=== PATIENT | female | born 1960 | race Two or more races ===

== ENCOUNTER 2025-04-06 13:37 | Emergency (ER) | payer MEDICAID ==
[~2025-04-06] VITALS: Ht 162.6 cm; Wt 75.0 kg
[~2025-04-06 13:37] MED LIST: ASPI81CH43; LISI-710; METF-370
[2025-04-06 13:39] VITALS: BP 145/74; RESP 18; TEMP 98.2; O2SAT 95
[2025-04-06 13:49] VITALS: PULSE 121
--- NOTE | 2025-04-06 14:10 | ED.PDOC ---
HPI Comments This is a 64 year old female presenting to the ED with chief complaint of syncopal episode. Patient reports that she was in the hospital visiting her daughter who is in the ICU today. Patient relays that this has been a heavy emotional burden on her and caused her to have a syncopal episode in the lobby. Patient states that she feels fine now and she only wishes to have an EKG done to make sure her heart is okay before going back to the lobby. Patient agrees to leave AMA from the department. Patient noted to have a BG in the 300s when rapid response was called. Patient denies any chest pain, SOB, dizziness, N/V, or injury. Chief Complaint: Syncope Time Seen by MD: 14:07 Primary Care Provider: UNK Reviewed Notes: Nurses Notes, Medications, Allergies Allergies: Coded Allergies: NO KNOWN ALLERGIES (Unverified , 03/24/11) Home Meds Reported Medications Lisinopril (Zestril) 10 Mg Tab 06/05/11 Metformin Hydrochloride (Metformin Hcl) 500 Mg Tab 06/05/11 Aspirin (Asa) 81 Mg Ch 06/05/11 Information Source: Patient Mode of Arrival: Ambulatory Severity: Mild Timing: Minutes Duration: Since onset Prehospital treatment: None Onset: At Rest Cardiac Risk Factors: Diabetes PE Risk Factors: None History of: None Associated Signs and Symptoms: Syncope Past Medical History PAST MEDICAL HISTORY: Anemia, DM Surgical History: A[employer]LOG [employer] History: Denies all [employer]NALOG [employer] DES[employer]ER Hx Family History Family History: Reviewed,noncontributory to illness, No family hx of DM Social History Smoker: Non-Smoker Alcohol: Denies ETOH Use Drugs: Denies Drug Use Lives In: Home Constitutional: denies: chills, diaphoresis, fatigue, fever, malaise, sweats, weakness, others EENTM: denies: blurred vision, double vision, ear bleeding, ear discharge, ear drainage, ear pain, ear ringing, eye pain, eye redness, hearing loss, mouth pain, mouth swelling, nasal discharge, nose bleeding, nose congestion, nose pain, photophobia, tearing, throat pain, throat swelling, voice changes, others Respiratory: denies: cough, hemoptysis, orthopnea, SOB at rest, shortness of breath, SOB with excertion, stridor, wheezing, others Cardiovascular: reports: syncope; denies: chest pain, dizzy spells, diaphoresi s, Dyspnea on exertion, edema, irregular heart beat, left arm pain, lightheadedness, palpitations, PND, others Gastrointestinal: denies: abdomen distended, abdominal pain, blood streaked bowels, constipated, diarrhea, dysphagia, difficulty swallowing, hematemesis, melena, nausea, poor appetite, poor fluid intake, rectal bleeding, rectal pain, vomiting, others Genitourinary: denies: abnormal vagina bleeding, burning, dyspareunia, dysuria, flank pain, frequency, hematuria, incontinence, pain, , vagina discharge, urgency, others Neurological: denies: dizziness, fainting, headache, left sided numbness, left sided weakness, numbness, paresthesia, pre-existing deficit, right sided numbness, right sided weakness, seizure, speech problems, tingling, tremors, weakness, others Musculoskeletal: denies: back pain, gout, joint pain, joint swelling, muscle pain, muscle stiffness, neck pain, others Integumetry: denies: bruises, change in color, change in hair/nails, dryness, laceration, lesions, lumps, rash, wounds, others Allergic/Immunocompromised: denies: Difficulty Healing, Frequent Infections, Hives, Itching, others Hematologic/Lymphatic: denies: anemia, blood clots, easy bleeding, easy bruising, swollen glands, others Endocrine: denies: excessive hunger, excessive sweating, excessive thirst, excessive urination, flushing, intolerance to cold, intolerance to heat, unexplained weight gain, unexplained weight loss, others Psychiatric: denies: anxiety, bipolar disorder, depression, hopeless, panic disorder, schizophrenia, sleepless, suicidal, others All Other Systems: Reviewed and Negative Physical Exam General Appearance: No Apparent Distress, Normal HEENT: Normal ENT Inspection, Pharynx Normal, TMs Normal Neck: Full Range of Motion, Non-Tender, Normal, Normal Inspection Respiratory: Chest Non-Tender, Lungs Clear, No Accessory Muscle Use, No Respiratory Distress, Normal Breath Sounds Cardiovascular: No Edema, No JVD, No Murmur, No Gallop, Normal Peripheral Pulses, Regular Rate/Rhythm Breast Exam: Deferred Gastrointestinal: No Organomegaly, Non Tender, No Pulsatile Mass, Normal Bowel Sounds, Soft Genitalia: Deferred Pelvic: Deferred Rectal: Deferred Extremities: No calf tenderness, Normal capillary refill, Normal inspection, Normal range of motion, Non-tender, No pedal edema Musculoskeletal : Apperance: Normal Neurologic: Alert, bunch maker II-XII nml as Tested, No Motor Deficits, Normal Affect, Normal Mood, No Sensory Deficits Cerebellar Function: Normal Reflexes: Normal Skin: Dry, Normal Color, Warm Lymphatic: No Adenopathy Was a procedure done? Was a procedure done?: No CP Differential Dx Differential Diagnosis: N/A Differential Diagnosis: CHF, HTN Essential, HTN Accelerated Differential Diagnosis: Gastritis, Myocardial Infarction, Pericarditis X-Ray, Labs, Meds, VS Vital Signs Date Time Temp Pulse Resp B/P (MAP) Pulse Ox O2 Delivery O2 Flow Rate FiO2 04/06/25 13:49 121 04/06/25 13:39 98.2 121 18 145/74 95 98.2 Time of 1ST Reevaluation: 14:15 Reevaluation 1ST: Unchanged Patient Education/Counseling: Diagnosis, Treatment Family Education/Counseling: Diagnosis, Treatment SEPSIS Sepsis Screen Date sepsis recognized/suspect: Apr 06, 2025 Time Sepsis recognized/suspect: 1341 Recent Procedure: No On Antibiotic Therapy: No Respiratory Rate >20: No Heart Rate >90: Yes Temp<36 C (96.8 F) or >38.3 C: No SBP <90 or MAP <65 mmHG: No New Acute Mental Status Change: No Is the patient on CPAP, BIPAP,: No Physician Orders Electrocardigram (04/06/25 14:41) Vital Signs Date Time Temp Pulse Resp B/P (MAP) Pulse Ox O2 Delivery O2 Flow Rate FiO2 04/06/25 13:49 121 04/06/25 13:39 98.2 121 18 145/74 95 98.2 Departure 1 Departure Time of Disposition: 06:36 (Patient presenting with a syncopal episode. Patient did not want to stay for an evaluation. Patient was visiting her daughter in ICU when she reports she became overwhelmed with emotion. She would now want any further workup in signed out AMA) Impression: Primary Impression: Syncope and collapse Disposition: 07 LEFT AGAINST MEDICAL ADVICE Condition: Serious Critical Care Note Critical Care Time?: No Stability Stability form required: No Heart Score Heart Score: Heart Score Response (Comments) Value History Moderate Suspicious 1 EKG Normal 0 Age 45-64 1 Risk Factors 1 or 2 risk factors 1 Troponin N/A 0 Total 3 I personally scribed for LAURA FELIX MD ([email or web address]) on 04/06/25 at 14:10. Electronically submitted by Maxime Coffey ([email or web address]). LAURA FELIX MD Apr 06, 2025 14:10
--- NOTE | 2025-04-07 09:14 | ECG ---
[facility] Test Date: 2025-04-06 Test Time: 13:49:54 Pat Name: JESSE PETE Department: Room: Gender: F Acid Pumper: BINU : 1960 Requested By: LAURA FELIX Order Number: [id number] Reading MD: Barrington Huston Measurements Intervals [place] Rate: 121 P: 61 ME: 139 QRS: 51 QRSD: 87 T: 42 QT: 339 QTc: 481 Interpretive Statements Sinus tachycardia LAE, consider biatrial enlargement Electronically Signed On 04-10-2025 19:13:24 PST by Barrington Huston Please click the below link to view image of tracing.
== END 2025-04-06 13:58 | disposition left against medical advice (07) ==
LOC: ER 13:37
DX: R55 Syncope and collapse (principal); E11.9 Type 2 diabetes mellitus without complications; D64.9 Anemia, unspecified; Z79.82 Long term (current) use of aspirin; Z79.84 Long term (current) use of oral hypoglycemic drugs; Z98.890 Other specified postprocedural states; Z79.899 Other long term (current) drug therapy
CPT/HCPCS: 93005